=== PATIENT | female | born 1980 | race Caucasian/White ===

== ENCOUNTER 2022-05-06 15:01 | Outpatient (CLI) | payer OTHER, SELFPAY | END 2022-05-06 15:02 | disposition home or self-care (01) | LOC: LKVREF 05-10 09:44 | PROVIDERS: PCP Family Medicine; Visit Provider Nurse Practitioner Family | DX: R30.0 Dysuria (principal); N39.0 Urinary tract infection, site not specified | CPT/HCPCS: 87086; 87186 ==

== ENCOUNTER 2024-05-25 13:47 | Outpatient (REF) | payer OTHER, SELFPAY ==
[2024-05-25 17:19] LABS: Free T4 Free Thyroxine* 1.82 ng/dL (0.70-1.85)
[2024-05-25 17:32] LABS: Thyroid Stimulating Hormone* 0.908 uIU/mL (0.270-4.20)
== END 2024-05-25 13:48 | disposition home or self-care (01) ==
LOC: NPINS 13:47
PROVIDERS: PCP Family Medicine; Visit Provider Internal Medicine Endocrinology, Diabetes & Metabolism
DX: E89.0 Postprocedural hypothyroidism (principal)
CPT/HCPCS: 84439; 84443

== ENCOUNTER 2024-10-20 08:07 | Outpatient (CLI) | payer BC, SELFPAY ==
[2024-10-20 09:41] LABS: Free T4 Free Thyroxine* 1.47 ng/dL (0.70-1.85)
== END 2024-10-20 08:08 | disposition home or self-care (01) ==
LOC: NPINS 08:08
PROVIDERS: PCP Family Medicine; Visit Provider Internal Medicine Endocrinology, Diabetes & Metabolism
DX: E89.0 Postprocedural hypothyroidism (principal)
CPT/HCPCS: 84439; 84443

== ENCOUNTER 2025-01-21 07:38 | Outpatient (CLI) | payer BC, SELFPAY ==
[2025-01-21 11:19] LABS: Free T4 Free Thyroxine* 1.41 ng/dL (0.70-1.85)
== END 2025-01-21 07:39 | disposition home or self-care (01) ==
PROVIDERS: PCP Family Medicine; Visit Provider Internal Medicine Endocrinology, Diabetes & Metabolism
DX: E89.0 Postprocedural hypothyroidism (principal)
CPT/HCPCS: 84439; 84443

== ENCOUNTER 2025-04-05 08:45 | Outpatient (CLI) | payer BC, SELFPAY ==
[2025-04-05 10:48] LABS: Free T4 Free Thyroxine* 1.51 ng/dL (0.70-1.85)
== END 2025-04-05 08:46 | disposition home or self-care (01) ==
LOC: NPINS 04-26 08:39
PROVIDERS: PCP Family Medicine; Visit Provider Internal Medicine Endocrinology, Diabetes & Metabolism
DX: E89.0 Postprocedural hypothyroidism (principal)
CPT/HCPCS: 84439; 84443

== ENCOUNTER 2025-04-22 10:49 | Outpatient (CLI) | payer BC, SELFPAY ==
[2025-04-28 07:09] LABS: 25-Hydroxyvitamin D2 <1.0 ng/mL; 25-Hydroxyvitamin D3 29.7 ng/mL
== END 2025-04-22 10:50 | disposition home or self-care (01) ==
LOC: NPINS 10:50
PROVIDERS: PCP Family Medicine; Visit Provider Physician Assistant
DX: E55.9 Vitamin D deficiency, unspecified (principal)
CPT/HCPCS: 82306